=== PATIENT | female | born 1985 | race Caucasian/White ===

== ENCOUNTER 2021-10-18 21:24 | Emergency (ER) | payer MEDICAID ==
[~2021-10-18] VITALS: Ht 152.4 cm; Wt 77.3 kg
[~2021-10-18 21:24] MED LIST: PANT-47 PO
[2021-10-18 21:31] VITALS: BP 155/92
[2021-10-18] MEDS ORDERED: HYDROcodone/acetaminophen 5mg/325mg tablet PO ONE (21:40)
[2021-10-18] MEDS ORDERED: PENI250T2 PO (21:41)
[2021-10-18] MEDS ORDERED: TRAM50TA2 PO (21:42)
[2021-10-18] MEDS ORDERED: NAPR-56 PO (21:42)
== END 2021-10-18 21:49 | disposition home or self-care (01) ==
LOC: ER 21:25
DX: K08.89 Other specified disorders of teeth and supporting structures (principal); Z88.5 Allergy status to narcotic agent; Z91.040 Latex allergy status; Z79.899 Other long term (current) drug therapy
CPT/HCPCS: 99283

== ENCOUNTER 2023-05-20 19:23 | Emergency (ER) | payer MEDICAID ==
[~2023-05-20] VITALS: Ht 152.4 cm; Wt 78.6 kg
[2023-05-20 19:40] VITALS: TEMP 97.9
[2023-05-20 21:04] LABS: BASOPHILS % (AUTO) 0.4 % (0-1); EOSINOPHILS # (AUTO) 0.5 X10'3 (0-0.9); EOSINOPHILS % (AUTO) 4.4 % (0-6); HEMATOCRIT 31.8 % (35.0-45.0); HEMOGLOBIN 10.1 g/dl (12.0-16.0); LYMPHOCYTES # (AUTO) 2.8 X10'3 (1.1-4.8); LYMPHOCYTES % (AUTO) 27.1 % (21-51); MEAN CORPUSCULAR HEMOGLOBIN 23.7 PG (27.0-31.0); MEAN CORPUSCULAR HGB CONC 31.6 g/dL (33.0-36.5); MEAN CORPUSCULAR VOLUME 74.8 FL (78-98); MEAN PLATELET VOLUME 8.8 FL (7.4-10.4); MONOCYTES % (AUTO) 9.1 % (2-12); NEUTROPHILS # (AUTO) 6.2 X10'3 (1.8-7.7); PLATELET COUNT 409 X10'3 (140-440); RED BLOOD COUNT 4.25 X10'6 (4.20-5.60); RED CELL DISTRIBUTION WIDTH 16.2 % (11.5-14.5); WHITE BLOOD COUNT 10.5 X10'3 (4.5-11.0)
[2023-05-20 21:20] LABS: ALANINE AMINOTRANSFERASE 31 U/L (12-78); ALBUMIN 3.5 G/DL (3.4-5.0); ALBUMIN/GLOBULIN RATIO 0.9 (1.1-1.5); ALKALINE PHOSPHATASE 60 IU/L (46-116); ANION GAP 10 (8-16); ASPARTATE AMINO TRANSFERASE 21 U/L (10-37); BILIRUBIN,TOTAL 0.2 MG/DL (0.1-1.0); BLOOD UREA NITROGEN 6 MG/DL (7-18); BUN/CREATININE RATIO 8.3 (10.0-20.0); CALCIUM 8.8 MG/DL (8.5-10.1); CHLORIDE 102 MMOL/L (99-107); CREATININE 0.72 MG/DL (0.40-0.90); GLUCOSE 111 MG/DL (70-104); LIPASE 24 U/L (16-77); POTASSIUM 3.2 MMOL/L (3.5-5.1); SODIUM 136 MMOL/L (135-145); TOTAL CARBON DIOXIDE 24.2 MMOL/L (24-32); TOTAL PROTEIN 7.6 G/DL (6.4-8.2); eCRCL 78 ML/MIN; eGFR > 90 ML/MIN
[2023-05-20 23:13] LABS: BILIRUBIN,URINE NEGATIVE (Neg); CLARITY,URINE SLIGHTLY CLOUDY (Clear); COLOR,URINE YELLOW (Yellow); GLUCOSE, URINE NEGATIVE (Neg); KETONES,URINE NEGATIVE (Neg); LEUKOCYTE ESTERASE ,URINE SMALL (Neg); NITRITES, URINE NEGATIVE (Neg); OCCULT BLOOD,URINE NEGATIVE (Neg); PROTEIN,URINE NEGATIVE (Neg); UROBILINOGEN,URINE 0.2 E.U/dL (0.2-1.0)
[2023-05-20 23:14] LABS: URINE HCG POSITIVE (NEG)
[2023-05-20 23:18] LABS: UA COLLECTION TYPE CLN CATCH MIDSTREAM
[2023-05-20 23:22] LABS: BACTERIA,URINE FEW /HPF (Neg); MUCUS STRANDS FEW /LPF (Neg); RBC,URINE 0-2 /HPF (0-2); SQUAMOUS EPITHELIAL CELL,UR MODERATE /LPF (FEW); WBC,URINE 0-4 /HPF (0-4)
[2023-05-20] MEDS ORDERED: acetaminophen 325mg tablet PO ONE (23:35)
[2023-05-21 00:15] LABS: BETA HCG,QUANTITATIVE 3308 mIU/ml
[2023-05-21] MEDS ORDERED: HYDROcodone/acetaminophen 5mg/325mg tablet PO ONE (03:15)
[2023-05-21] MEDS ORDERED: metoclopramide 5 mg/ml inj IV ONE (06:40)
[2023-05-21] MEDS ORDERED: morphine 4 MG/ML inj SYRINge IV ONE (06:40)
[2023-05-21 06:45] VITALS: BP 102/54; PULSE 85; RESP 16; O2SAT 99
== END 2023-05-21 08:26 | disposition short-term general hospital (02) ==
LOC: ER 19:23
DX: O46.91 Antepartum hemorrhage, unspecified, first trimester (principal); O26.891 Other specified pregnancy related conditions, first trimester; R31.9 Hematuria, unspecified; Z3A.01 Less than 8 weeks gestation of pregnancy; Z88.5 Allergy status to narcotic agent; Z91.040 Latex allergy status; Z79.899 Other long term (current) drug therapy
CPT/HCPCS: 36415; 76801; 76817; 80053; 81001; 81025; 83690; 84145; 84702; 85025; 86900; 86901; 87088; 96374; 96375; 99291; 99292; J2270; J2765

== ENCOUNTER 2023-08-23 20:36 | Emergency (ER) | payer MEDICAID ==
[~2023-08-23] VITALS: Ht 152.4 cm; Wt 69.5 kg
[2023-08-23 21:00] VITALS: TEMP 97.2
[2023-08-23] MEDS ORDERED: ketorolac trometh. 30mg/ml inj. IM ONE (22:05)
[2023-08-23] MEDS: ketorolac tromethamine 15mg/ml inj. IM ONE (22:14)
[2023-08-23 22:38] VITALS: BP 110/73; PULSE 72; RESP 15; O2SAT 99
[2023-08-23] MEDS ORDERED: PRED20TA PO (23:07)
[2023-08-23] MEDS ORDERED: IBUP-1984 PO (23:07)
[2023-08-23] MEDS ORDERED: CYCL-1 PO (23:07)
[2023-08-23] MEDS: predniSONE 20 mg tablet PO ONE (23:15)
== END 2023-08-23 23:19 | disposition home or self-care (01) ==
LOC: ER 20:37
DX: S46.911A Strain of unspecified muscle, fascia and tendon at shoulder and upper arm level, right arm, initial encounter (principal); Z88.5 Allergy status to narcotic agent; Z91.040 Latex allergy status; Z79.1 Long term (current) use of non-steroidal anti-inflammatories (NSAID); Z79.899 Other long term (current) drug therapy; X58.XXXA Exposure to other specified factors, initial encounter; Y93.89 Activity, other specified; Y92.89 Other specified places as the place of occurrence of the external cause; Y99.8 Other external cause status
CPT/HCPCS: 73030; 96372; 99283; J1885; J7512; A4565

== ENCOUNTER 2024-01-19 07:09 | Day surgery (SDC) | payer MEDICAID ==
[~2024-01-19] VITALS: Ht 152.4 cm; Wt 63.6 kg
[~2024-01-19 07:09] MED LIST changes: +CYCL-1 PO; +LAMO25TA5 PO; +LEVO150T PO; -PANT-47 PO
[2024-01-19 07:25] VITALS: BP 105/71; PULSE 77; RESP 12
[2024-01-19] MEDS ORDERED: MIDAZolam 1 MG/ML 5ML VIAL ONE (07:34)
[2024-01-19] MEDS ORDERED: fentaNYL/PF 50MCG/1 ML 2ML syringe ONE (07:34)
[2024-01-19] MEDS ORDERED: LIDOcaine 2% Viscous 15ml cup ONE (07:34)
[2024-01-19 07:50] VITALS: BP 102/70; PULSE 76; RESP 14; O2SAT 100
[2024-01-19 08:00] VITALS: BP 108/72; PULSE 65; RESP 17; O2SAT 100
[2024-01-19 08:10] VITALS: BP 102/68; PULSE 69; RESP 15; O2SAT 100
[2024-01-19 08:20] VITALS: BP 108/71; PULSE 59; RESP 18; O2SAT 100
== END 2024-01-19 08:20 | disposition home or self-care (01) ==
LOC: GI LAB 07:09
PROVIDERS: ATTEND Surgery
DX: K21.00 Gastro-esophageal reflux disease with esophagitis, without bleeding (principal); K44.9 Diaphragmatic hernia without obstruction or gangrene; K29.50 Unspecified chronic gastritis without bleeding; K31.89 Other diseases of stomach and duodenum; K25.9 Gastric ulcer, unspecified as acute or chronic, without hemorrhage or perforation
CPT/HCPCS: 43239; 99152; J2250; J3010; J7030; Z7512; A4620

== ENCOUNTER 2024-02-01 14:37 | Outpatient (CLI) | payer MEDICAID | END 2024-02-01 23:59 | disposition home or self-care (01) | LOC: RAD 14:37 | PROVIDERS: ATTEND Surgery | DX: K21.9 Gastro-esophageal reflux disease without esophagitis (principal); K44.9 Diaphragmatic hernia without obstruction or gangrene | CPT/HCPCS: 74220 ==

== ENCOUNTER 2024-03-13 10:03 | Inpatient (IN) | payer MEDICAID ==
[2024-03-06 10:52] LABS: BASOPHILS % (AUTO) 0.5 % (0-1); EOSINOPHILS # (AUTO) 0.2 X10'3 (0-0.9); EOSINOPHILS % (AUTO) 2.2 % (0-6); LYMPHOCYTES # (AUTO) 3.1 X10'3 (1.1-4.8); LYMPHOCYTES % (AUTO) 38.2 % (21-51); MEAN CORPUSCULAR HEMOGLOBIN 21.4 PG (27.0-31.0); MEAN CORPUSCULAR HGB CONC 30.8 g/dL (33.0-36.5); MEAN CORPUSCULAR VOLUME 69.5 FL (78-98); MEAN PLATELET VOLUME 8.1 FL (7.4-10.4); MONOCYTES # (AUTO) 0.6 X10'3 (0-0.9); MONOCYTES % (AUTO) 7.4 % (2-12); NEUTROPHILS # (AUTO) 4.2 X10'3 (1.8-7.7); NEUTROPHILS % (AUTO) 51.7 % (42-75); PRE OP HEMATOCRIT 34.3 % (35.0-45.0); PRE OP PLATELET COUNT 542 X10'3 (140-440); PRE OP WHITE BLOOD COUNT 8.1 10'3 (4.8-10.8); RED BLOOD COUNT 4.94 X10'6 (4.20-5.60); RED CELL DISTRIBUTION WIDTH 15.6 % (11.5-14.5)
[2024-03-06 10:53] LABS: PRE OP HEMOGLOBIN 10.6 g/dL (12.0-16.0)
[2024-03-06 11:06] LABS: BURR CELLS FEW; ELLIPTOCYTES FEW; MICROCYTOSIS 2+; PLATELET ESTIMATE INCREASED; POLYCHROMASIA FEW
[2024-03-06 11:11] LABS: HCG SERUM QL NEGATIVE
[2024-03-06 11:25] LABS: ALBUMIN 3.7 G/DL (3.4-5.0); ALBUMIN/GLOBULIN RATIO 0.9 (1.1-1.5); ALKALINE PHOSPHATASE 67 IU/L (46-116); BLOOD UREA NITROGEN 9 MG/DL (7-18); BUN/CREATININE RATIO 13.4 (10.0-20.0); CALCIUM 8.7 MG/DL (8.5-10.1); CHLORIDE 104 MMOL/L (99-107); CREATININE 0.67 MG/DL (0.40-0.90); PRE OP ALT 26 U/L (30-65); PRE OP ANION GAP 9 (8-16); PRE OP AST 24 U/L (10-37); PRE OP BILIRUB, TOTAL 0.4 MG/DL (0.0-1.0); PRE OP GLUCOSE 76 MG/DL (70-104); PRE OP POTASSIUM 3.6 MMOL/L (3.4-5.1); PRE OP SODIUM 137 MMOL/L (135-145); TOTAL CARBON DIOXIDE 24.1 MMOL/L (24-32); TOTAL PROTEIN 7.8 G/DL (6.4-8.2); eGFR > 90 ML/MIN
[2024-03-13] VITALS (31 sets, daily range): BP systolic 104–138; BP diastolic 57–90; PULSE 65–105; RESP 12–27; TEMP 97.8–98.2; O2SAT 92–100
[~2024-03-13] VITALS: Ht 152.4 cm; Wt 67.1 kg
[~2024-03-13 10:03] MED LIST changes: -CYCL-1 PO
[2024-03-13] MEDS: famotidine 20mg tablet PO ONE (11:27)
[2024-03-13] MEDS: ringers solution, lacted 1,000 ML IV SCH ×2 (11:27→14:45)
[2024-03-13] MEDS ORDERED: sevoflurane 250ml liquid IH ONE (13:56)
[2024-03-13] MEDS ORDERED: ondansetron/PF 4mg/2ml inj ONE (13:57)
[2024-03-13] MEDS ORDERED: fentaNYL/PF 50MCG/1 ML 2ML syringe ONE (13:57)
[2024-03-13] MEDS ORDERED: rocuronium 10mg/ml inj IV ONE ×2 (13:57→15:24)
[2024-03-13] MEDS ORDERED: propofol inj 20 ML IV ONE (13:57)
[2024-03-13] MEDS ORDERED: midazolam 1 mg/ML 2ml injection ONE (13:57)
[2024-03-13] MEDS ORDERED: LIDOcaine 2% (20mg/ml) 5ml vial ONE (13:57)
[2024-03-13] MEDS ORDERED: acetaminophen 1,000mg/100ml IV 100 ML IV ONE (14:12)
[2024-03-13] MEDS: LIDOcaine 1% 30ml preserv. free vial ONE (14:41)
[2024-03-13] MEDS: BUPIVAcaine 2.5mg/ml inj 50ml vial (contains preservative) ONE (14:41)
[2024-03-13] MEDS ORDERED: labetalol 20mg/4ml (5mg/ml) syringe IV PRN (14:45)
[2024-03-13] MEDS ORDERED: fentaNYL/PF 50MCG/1 ML 2ML syringe IV PRN ×2 (14:45)
[2024-03-13] MEDS ORDERED: hydrALAZINE 20mg/ml inj. IV PRN (14:45)
[2024-03-13] MEDS ORDERED: morphine 2 MG/ML inj. syringe IV PRN (14:45)
[2024-03-13] MEDS ORDERED: sugammadex 200mg/2ml injection IV ONE (15:24)
[2024-03-13] MEDS: normal saline 1000ml 1,000 ML IV SCH (16:30)
[2024-03-13] MEDS ORDERED: naloxone 0.4 mg/ml inj IV PRN (16:30)
[2024-03-13] MEDS: HYDROmorph/NS 0.2 mg/ml PCA 100 ML IV SCH (17:00)
[2024-03-13] MEDS: morphine 4 MG/ML inj SYRINge IV PRN (17:06)
[2024-03-13] MEDS: ondansetron/PF 4mg/2ml inj IV PRN ×2 (17:08→20:34)
[2024-03-13] MEDS ORDERED: OXYC-145 PO (18:36)
[2024-03-13] MEDS: potassium CL 20mEq in D5-1/2NS 1,000 ML IV SCH (22:53)
[2024-03-14] VITALS: BP 115/63; PULSE 70; RESP 18; O2SAT 97
[2024-03-14 01:00] VITALS: BP 114/67; PULSE 78; RESP 20; O2SAT 98
[2024-03-14 07:00] VITALS: RESP 16; O2SAT 98
[2024-03-14 07:09] VITALS: BP 112/85; PULSE 53; RESP 16; TEMP 97.8; O2SAT 98
[2024-03-14] MEDS: enoxaparin 40mg/0.4ml syringe SQ SCH (08:16)
[2024-03-14] MEDS ORDERED: oxyCODONE/APAP 5-325mg tablet PO PRN (10:10)
[2024-03-14] MEDS: oxyCODONE/APAP 5-325mg tablet PO ONE (10:34)
[2024-03-14] MEDS ORDERED: PCA WASTE DOCUMENTATION 1 MG ML MC SCH (10:45)
[2024-03-14 11:10] VITALS: BP 118/81; PULSE 83; RESP 16; TEMP 98.6; O2SAT 97
== END 2024-03-14 13:45 | disposition home or self-care (01) | DRG 220 ==
LOC: PAS IN 10:25 → SUR 3N 18:45
PROVIDERS: ADMIT Surgery; ATTEND Surgery
PROC: 8E0W4CZ Robotic Assisted Procedure of Trunk Region, Percutaneous Endoscopic Approach (ICD-10-PCS; 2024-03-13)
PROC: 0DQ64ZZ Repair Stomach, Percutaneous Endoscopic Approach (ICD-10-PCS; 2024-03-13)
PROC: 0BUT4JZ Supplement Diaphragm with Synthetic Substitute, Percutaneous Endoscopic Approach (ICD-10-PCS; principal; 2024-03-13 13:56)
DX: K44.9 Diaphragmatic hernia without obstruction or gangrene (principal); F31.9 Bipolar disorder, unspecified; K21.9 Gastro-esophageal reflux disease without esophagitis; Z88.5 Allergy status to narcotic agent; Z91.040 Latex allergy status; Z98.84 Bariatric surgery status; Z88.0 Allergy status to penicillin
CPT/HCPCS: 71045; 80053; 82948; 84703; 85008; 85025; 87081; A4618; C1781; G0378; J0131; J0690; J1100; J1171; J1650; J2250; J2270; J2405; J2704; J3010; J3480; J3490; J7040; J7060; J7120

== ENCOUNTER 2025-01-03 09:36 | Emergency (ER) | payer MEDICAID ==
[~2025-01-03] VITALS: Ht 149.9 cm; Wt 50.9 kg
[~2025-01-03 09:36] MED LIST changes: +LAMO-24 PO; -LAMO25TA5 PO; +OXYC-145 PO
--- NOTE | 2025-01-03 09:55 | Physician Documentation ---
History of Present Illness ~ Chief Complaint: Blood in Urine Stated Complaint: BLOOD IN URINE Time Seen by MD: 09:48 Primary Medical Doctor: [facility] HPI This is a 39-year-old female who reports that she woke up this morning with bloody urine, dysuria, bladder pressure. No chills or fever, chest pain or shortness of breath. No nausea or vomiting. Medication Reconciliation Allergies: Coded Allergies: codeine (Verified Allergy, Intermediate, aggressive, 01/03/25) latex (Verified Allergy, Intermediate, SEVERE RASH, LIPS SWELL, 01/03/25) Scheduled Lamotrigine (Lamotrigine), 2 TAB PO DAILY, (Reported) Levothyroxine Sodium (Synthroid), 1 TAB PO DAILY, (Reported) Scheduled PRN Oxycodone HCl/Acetaminophen (Percocet 5-325 mg Tablet), 1 TAB PO Q4HPRN PRN for pain Past Medical History Past Medical History: UTI Past Surgical History: other Other Past Surgical History: Gastric sleeve Alcohol Use: None Drug Use: none Lives In: Home Review of Systems ROS As stated above in the HPI, otherwise all systems are reviewed and negative. Physical Exam Vital Signs: Temperature: 98.3, Source: Oral, Heart Rate: 77, Respiratory Rate: 18, BP: 110/72, Pulse Oximetry: 100, Weight: 50.850 Physical Exam General: Alert, no apparent distress. HEENT: PERRL, EOMI, no injection, moist mucous membranes. Neck: Full range of motion. Respiratory: Lungs clear, no respiratory distress. Chest: No accessory muscle use. Cardiovascular: Regular rate and rhythm, no murmurs. Gastrointestinal: Soft, nontender, nondistended. Bowels sounds present. No CVA tenderness. Extremities: Normal range of motion, no deformity. Neurologic: Oriented x4. Psychiatric: Normal mood and affect. Skin: Normal color, warm and dry. No edema, no ecchymosis. Progress Results/Orders Results/Orders Orders - JOSIE CLAY [employer]PER[employer] Chlam/Gc Amp Ur (01/03/25 09:55) Cult Urine + [address] (01/03/25 10:32) Completed Orders - JOSIE CLAY NP Hcg, Ur Ql (01/03/25 09:55) Ua W/Microscopic, Cult If Ind (01/03/25 10:05) Vital Signs 01/03/25 01/03/25 01/03/25 09:40 09:50 10:05 Temp 98.3 98.8 Pulse 77 96 Resp 18 16 18 B/P (MAP) 110/72 110/73 (85) Pulse Ox 100 99 O2 Flow Rate 0 Laboratory Tests Test 01/03/25 10:05 Urine Specimen Description Cln catch midstream Urine Color Straw Urine Clarity Clear Urine pH 6.5 Urine Specific [place] <=1.005 Urine Protein Negative Urine Glucose (UA) Negative Urine Ketones Negative Urine Occult Blood Moderate H Urine Nitrite Negative Urine Bilirubin Negative Urine Urobilinogen 0.2 Urine Leukocyte Esterase Moderate H Urine RBC 3-10 Urine WBC 30-50 H Urine Squamous Epithelial Cells Moderate Urine Bacteria Few Urine Culture Indicated Indicated Volume Urine Centrifuged 10 ml Urine HCG, Qualitative Negative Urine Comment Medical Decision Making Additional Comment Well-appearing 39-year-old female without CVA tenderness. No fever, chills, N/V or other signs of sepsis or pyelonephritis. Patient will be treated with Macrobid and phenazopyridine. He is instructed to return if worse, otherwise should follow up with primary care. Departure Time of Disposition: 10:35 Disposition: 01 HOME / SELF CARE / HOMELESS Impression: Primary Impression: Acute urinary tract infection Condition: Stable Discharge Instructions: Urinary Tract Infection, Adult Additional Instructions: Negative test. Urinalysis does show infection. Testing for gonorrhea and chlamydia pending and may be obtained through your primary care provider. Drink plenty of water. Take the phenazopyridine as prescribed-causes urine to be dark orange and may stain light underwear. Return if worse. Referrals: NO PRIMARY CARE PROVIDER (PCP) Prescriptions Nitrofurantoin Monohyd/M-Cryst (Macrobid 100 mg Capsule) 100 Mg Capsule 1 CAP PO Q12H for 5 Days, #10 CAP 0 Refills Prov: JOSIE CLAY NP 01/03/25 Phenazopyridine Hcl (Pyridium tablet) 100 Mg Tablet 1 TAB PO Q8H for urinary discomfort for 2 Days, #6 TAB 0 Refills Prov: JOSIE CLAY NP 01/03/25 Education Educated: Patient Educated regarding: diagnosis, treatment, prognosis, need for follow up Signature Scribe Signature: No scribe Attestation: The note accurately reflects work and decisions made by me.Josie Huntley NP 01/03/25 09:54 JOSIE CLAY [employer] Jan 03, 2025 09:55
[2025-01-03 10:17] LABS: URINE HCG NEGATIVE (NEG)
[2025-01-03 10:21] LABS: LEUKOCYTE ESTERASE ,URINE MODERATE (Neg); NITRITES, URINE NEGATIVE (Neg); OCCULT BLOOD,URINE MODERATE (Neg)
[2025-01-03 10:23] LABS: UA COLLECTION TYPE CLN CATCH MIDSTREAM
[2025-01-03 10:29] LABS: SQUAMOUS EPITHELIAL CELL,UR MODERATE /LPF (FEW)
[2025-01-03] MEDS ORDERED: PHEN-786 PO (10:37)
[2025-01-03] MEDS ORDERED: NITR100C6 PO (10:37)
[2025-01-03 10:42] VITALS: BP 110/73; PULSE 78; RESP 16; TEMP 98.6; O2SAT 97
[2025-01-03] MEDS: nitrofuran monohydrate/nitrofuran macrocrysal 100 MG (MacroBID) capsule PO ONE (10:49)
[2025-01-03] MEDS: phenazopyridine 100mg tablet PO ONE (10:50)
== END 2025-01-03 10:51 | disposition home or self-care (01) ==
LOC: ER 09:36
DX: N39.0 Urinary tract infection, site not specified (principal); Z88.5 Allergy status to narcotic agent; Z91.040 Latex allergy status; Z79.899 Other long term (current) drug therapy
CPT/HCPCS: 36415; 81001; 81025; 87077; 87088; 87186; 87491; 99283